=== PATIENT | male | born 1965 | race Caucasian/White ===

== ENCOUNTER 2018-10-17 09:04 | Outpatient (CLI) | payer OTHER ==
--- NOTE | 2018-10-17 12:59 | MRI ---
MRI LUMBAR SPINE WITHOUT CONTRAST: History Low back pain, radiating up the spine x 2-3 months. COMPARISON: None. TECHNIQUE: MRI lumbar spine is performed without intravenous Gadolinium administration. Multisequential, multip lanar imaging is performed. FINDINGS: Appropriate T1 marrow signal intensity of the lumbar vertebrae. Lumbar spine vertebral body height i s maintained. There is no fracture. Straightening of normal lumbar lordosis is presumed to be posit ioning. No MR evidence of ligamentous injury. Appropriate signal intensity of the visualized solid organs. Symmetric signal intensity of the psoas muscles. Conus medullaris terminates at the inferior aspect of T12. T12-L1: Adequate disk hydration. No significant central canal stenosis. Neural foramen are patent. L1-L2: Adequate disk hydration. No significant central canal stenosis. Neural foramen are patent. L2-L3: Adequate disk hydration. Mild loss of disk space height. Generalized disk bulge results in mild central canal stenosis. Neural foramina are patent. Questionable annular fissure along the pos terior aspect of the L2-L3 disk. L3-L4: Adequate disk hydration. Minimal generalized disk bulge. Minimal central canal stenosis. N eural foramina are patent. L4-L5: Adequate disk hydration. However, there is still mild loss of disk space height. Generalize d disk bulge, results in mild central canal stenosis. Mild right and mild to moderate left neural fo raminal narrowing. L5-S1: Disk space height is maintained. There is a generalized disk bulge. In the left subarticula r zone, there is a T2 and STIR hyperintense lesion compatible with an annular fissure. Annular fissu re does abut the traversing left S1 nerve root. No significant stenosis of the thecal sac. Mild to moderate bilateral neural foraminal narrowing. IMPRESSION: Annular fissure at L2-L3 and L5-S1 as described above. The L5-S1 annular fissure does abut the trave rsing left S1 nerve root. POS: [facility]
== END 2018-10-17 09:05 | disposition home or self-care (01) ==
LOC: SCSMRI 09:04
PROVIDERS: ATTEND Family Medicine
DX: M54.5 Low back pain (principal); Q05.7 Lumbar spina bifida without hydrocephalus
CPT/HCPCS: 72148

== ENCOUNTER 2025-07-13 13:14 | Outpatient (CLI) | payer BC, OTHER | END 2025-07-13 13:15 | disposition home or self-care (01) | LOC: SCSRAD 13:14 | PROVIDERS: ATTEND Nurse Practitioner Family | DX: M79.602 Pain in left arm (principal) ==